=== PATIENT | female | born 1980 | race Caucasian/White ===

== ENCOUNTER 2021-05-20 10:17 | Emergency (ER) | payer OTHER ==
[~2021-05-20] VITALS: Ht 160 cm; Wt 59.0 kg
[2021-05-20 11:37] VITALS: BP 138/85
== END 2021-05-20 12:01 | disposition home or self-care (01) ==
LOC: ER 10:17
DX: S60.415A Abrasion of left ring finger, initial encounter (principal); W23.0XXA Caught, crushed, jammed, or pinched between moving objects, initial encounter; Y93.89 Activity, other specified; Y92.89 Other specified places as the place of occurrence of the external cause; Y99.8 Other external cause status